=== PATIENT | female | born 1980 | race Two or more races ===

== ENCOUNTER 2019-07-24 13:39 | Outpatient (CLI) | payer OTHER | END 2019-07-24 15:45 | disposition home or self-care (01) | LOC: TOM 13:39 | DX: R51 Headache (principal); Z13.0 Encounter for screening for diseases of the blood and blood-forming organs and certain disorders involving the immune mechanism ==

== ENCOUNTER 2022-02-17 09:32 | Emergency (ER) | payer OTHER ==
[~2022-02-17] VITALS: Ht 160 cm; Wt 68.0 kg
== END 2022-02-17 10:36 | disposition home or self-care (01) ==
LOC: ER 09:32
DX: Z53.21 Procedure and treatment not carried out due to patient leaving prior to being seen by health care provider (principal)

== ENCOUNTER 2023-01-06 15:10 | Emergency (ER) | payer OTHER ==
[~2023-01-06] VITALS: Ht 160 cm; Wt 70.3 kg
[2023-01-07] MEDS ORDERED: PEPCID40 MG PO (05:52)
[2023-01-07] MEDS ORDERED: LEVSIN/SL0.125 MG SL (05:52)
[2023-01-07] MEDS ORDERED: ZOFRAN8 MG PO (05:52)
[2023-01-07] MEDS ORDERED: DOLOGESIC 500-1 EACH PO (05:55)
== END 2023-01-07 06:02 ==
LOC: ER 15:10
DX: R10.11 Right upper quadrant pain (principal); R16.2 Hepatomegaly with splenomegaly, not elsewhere classified; Z20.822 Contact with and (suspected) exposure to COVID-19

== ENCOUNTER 2023-01-13 03:18 | Emergency (ER) | payer OTHER ==
[~2023-01-13] VITALS: Ht 160 cm; Wt 686.3 kg
[~2023-01-13 03:18] MED LIST: DOLOGESIC 500-1 EACH PO; LEVSIN/SL0.125 MG SL; PEPCID40 MG PO; ZOFRAN8 MG PO
[2023-01-13] MEDS ORDERED: DICLOFENAC SODI75 MG PO (05:00)
[2023-01-13] MEDS ORDERED: NORFLEX100MG PO (05:00)
== END 2023-01-13 05:23 | disposition home or self-care (01) ==
LOC: ER 03:18
DX: M54.9 Dorsalgia, unspecified (principal)